=== PATIENT | female | born 1945 | race Hispanic/Latino ===

== ENCOUNTER → 2019-06-02 | Outpatient (CLI) | payer OTHER, MEDICARE | END | disposition home or self-care (01) | LOC: SHCH 10:09 | PROVIDERS: ATTEND Internal Medicine Cardiovascular Disease | DX: I87.2 Venous insufficiency (chronic) (peripheral) (principal) | CPT/HCPCS: 93970 ==

== ENCOUNTER 2022-12-10 13:46 | Emergency (ER) | payer OTHER, MEDICARE ==
[~2022-12-10] VITALS: Ht 162.6 cm; Wt 78.9 kg
[2022-12-10] MEDS ORDERED: KETOROLAC 60 MG VIAL (30MG/ML) IM ONE (15:30)
[2022-12-10] MEDS ORDERED: HYDROCODONE/ACETAMINOPHEN 5/325 MG TAB PO ONE (15:30)
[2022-12-10 15:42] LABS: BASOPHILS % (AUTO) 0.7 % (0.0-5.0); EOSINOPHILS % (AUTO) 0.4 % (0.0-8.0); HEMATOCRIT 31.6 % (36-48); LYMPHOCYTES % (AUTO) 12.1 % (21.0-51.0); MEAN CORPUSCULAR HEMOGLOBIN 28.8 pg (27.0-33.0); MEAN CORPUSCULAR HGB CONC 33.9 g/dL (32.0-36.0); MEAN CORPUSCULAR VOLUME 84.9 fL (79-99); MONOCYTES % (AUTO) 7.5 % (3.0-13.0); NEUTROPHILS % (AUTO) 78.2 % (40.0-77.0); PLATELET COUNT (AUTO) 504 K/uL (130-400); RED BLOOD CELL COUNT(AUTO) 3.72 MIL/uL (4.00-5.50); RED CELL DISTRIBUTION WIDTH 13.1 % (11.0-15.5); WHITE BLOOD COUNT (AUTO) 11.5 K/uL (4.8-10.8)
[2022-12-10 15:54] LABS: CREATININE 0.7 mg/dL (0.5-1.5); POTASSIUM 3.6 mmol/L (3.5-5.1)
[2022-12-10 15:55] LABS: ALBUMIN 3.4 g/dL (3.5-5.0); TOTAL PROTEIN, SERUM 7.1 g/dL (6.0-8.3)
[2022-12-10 15:57] LABS: APPEARANCE,URINE CLEAR (CLEAR); BILIRUBIN,URINE NEGATIVE (NEGATIVE); COLOR,URINE LIGHT-YELLOW (YELLOW); GLUCOSE, URINE (UA) NEGATIVE (NEGATIVE); KETONES,URINE NEGATIVE (NEGATIVE); LEUKOCYTE ESTERASE ,URINE NEGATIVE Leu/uL (NEGATIVE); NITRATE,URINE NEGATIVE (NEGATIVE); OCCULT BLOOD,URINE SMALL (NEGATIVE); PH,URINE 6.5 (5.0-8.0); PROTEIN,URINE NEGATIVE (NEGATIVE); UROBILINOGEN,URINE 0.2 mg/dL (0.2-1.0)
[2022-12-10 16:00] LABS: BACTERIA,URINE RARE /HPF (None Seen); RBC,URINE 0-1 /HPF (0-1); SQUAMOUS EPITHELIAL CELL,UR RARE /HPF (0-2); WBC,URINE 0-1 /HPF (0-1)
[2022-12-10] MEDS ORDERED: 0.9%NACL 1000ML 1,000 ML IV ONE (16:30)
[2022-12-10] MEDS ORDERED: DICL75TA5 PO (16:50)
[2022-12-10] MEDS ORDERED: METH-812 PO (16:50)
[2022-12-10 17:22] VITALS: BP 132/62
== END 2022-12-10 17:23 | disposition home or self-care (01) ==
LOC: EDH 13:46
DX: M54.16 Radiculopathy, lumbar region (principal); M54.41 Lumbago with sciatica, right side; E87.8 Other disorders of electrolyte and fluid balance, not elsewhere classified; I10 Essential (primary) hypertension; E11.9 Type 2 diabetes mellitus without complications; E78.00 Pure hypercholesterolemia, unspecified; A41.9 Sepsis, unspecified organism; Z90.49 Acquired absence of other specified parts of digestive tract
CPT/HCPCS: 99284; 80053; 85025; 81001; 36415; 73552; 72100; 96372; J1885

== ENCOUNTER → 2025-04-12 | Outpatient (CLI) | payer OTHER, MEDICARE ==
[~2025-04-12] MED LIST: DICL75TA5 PO; METH-812 PO
--- NOTE | 2025-04-12 16:37 | HMCSR ---
APPROVED REPORT EXAM: Two-dimensional and M-mode echocardiogram with Doppler and color Doppler. INDICATION ICD: i63.81 2D Dimensions RVDd3.9 cmLVEF(%)47.9 (>50%)LVED Vol(simp.)76.0 mL IVSd0.9 (0.7-1.1cm)FS(%)24 %LVES Vol(simp.)35.0 mL LVDd3.7 (3.8-5.6cm)LA (2D)3.6 (1.6-4.0cm)LVEF(%, simp.)54 % PWd1.0 (0.7-1.1cm)Ao Root(2D)2.6 (2.0-3.7cm)LA ESV INDEX (BP)30.45 mL/m2 LVDs2.9 (2.5-4.0cm)LVOT diam1.7 (1.8-2.4cm) IVC diam1.6 cm M-Mode Dimensions EPSS0.5 cm LA (MM)3.8 (1.6-4.0cm) Ao Root(MM)1.9 (2.0-3.7cm) Aortic Valve AoV Vmax1.2 m/Jolynn Peak GR5.9 mmHgLVOT Vmax1.2 m/s AoV VTI0.3 mAo Mean GR3.3 mmHgLVOT VTI0.28 m ROMERO (VMAX)2.29 cm2Al P1/2T551 msAVA (VTI) 2.2 cm2 Mitral Valve MV E Vmax83.7 cm/sDECEL Wpql830 ms MV A Cofg826.4 cm/sP 1/2 T71 ms E/A ratio0.7MVA (PHT)3.1 cm2 TDI E/E' Bpfxuy42.3E/E' Nnpmbdv47.4 Medial E' Peak V5.85 cm/sLateral E' Peak V8.03 cm/s Pulmonary Valve PV Vmax1.1 m/sPV VTI0.23 mPV Mean GR3.1 mmHg PV Peak GR5.1 mmHg Tricuspid Valve TR Vmax2.2 m/sRVSP19.2 mmHg TR Peak GR19.2 mmHg Left Ventricle The left ventricle is normal size. There is normal LV segmental wall motion. There is normal left migdalia tricular wall thickness. LVEF is 55-60%. The left ventricular diastolic function is normal. Right Ventricle The right ventricle is normal size. The right ventricular systolic function is normal. Atria The left atrium size is normal. The right atrium size is normal. Aortic Valve The aortic valve is normal in structure. Mild aortic regurgitation. There is no aortic valvular steno sis. Mitral Valve The mitral valve is normal in structure. Severe mitral annular calcification present. Mitral regurgit ation is trace. There is no mitral valve stenosis. Tricuspid Valve The tricuspid valve is normal in structure. There is no tricuspid valve regurgitation noted. Pulmonic Valve The pulmonary valve is normal in structure. There is no pulmonic valvular regurgitation. Great Vessels The aortic root is normal in size. The IVC is normal in size and collapses >50% with inspiration. Pericardium There is no pericardial effusion. Conclusion LVEF is 55-60%. Mild aortic regurgitation. Mitral regurgitation is trace.
== END | disposition home or self-care (01) ==
LOC: RAH 13:59
PROVIDERS: ATTEND Internal Medicine
DX: I08.0 Rheumatic disorders of both mitral and aortic valves (principal); I63.81 Other cerebral infarction due to occlusion or stenosis of small artery
CPT/HCPCS: 93306